=== PATIENT | female | born 1960 | race African-American/Black ===

== ENCOUNTER 2023-09-08 09:25 | Emergency (ER) | payer MEDICAID ==
[~2023-09-08] VITALS: Ht 160 cm; Wt 68.0 kg
[~2023-09-08 09:25] MED LIST: NAPR-681 PO
[2023-09-08 09:45] VITALS: O2SAT 97
[2023-09-08 10:35] LABS: CLARITY URINE CLOUDY (CLEAR); COLOR URINE YELLOW (YELLOW); GLUCOSE URINE NEGATIVE (NEGATIVE); KETONES URINE NEGATIVE (NEGATIVE); LEUKOCYTE ESTERASE URINE 3+ (NEGATIVE); NITRITE URINE NEGATIVE (NEGATIVE); OCCULT BLOOD URINE TRACE (NEGATIVE); PH URINE 5.5 (4.5-8.0); PROTEIN URINE NEGATIVE (NEGATIVE); UROBILINOGEN URINE 0.2 E.U./dL (0.2-1.0)
[2023-09-08 11:05] LABS: BACTERIA URINE 2+; SQUAMOUS EPITHELIAL CELL URINE 2+ /lpf (RARE/1+); WBC URINE 50-100 /hpf (0-2); YEAST URINE NONE SEEN
[2023-09-08] MEDS ORDERED: CEFTRIAXONE 1GM/50ML 50 ML IV NR (12:00)
[2023-09-08] MEDS ORDERED: DOXY100C5 MT (12:02)
[2023-09-08] MEDS: DOXYCYCLINE HYCLATE 100MG CAPSULE PO NR (12:09)
[2023-09-08 12:23] VITALS: BP 164/86; PULSE 76; RESP 18; TEMP 98.3
[2023-09-08] MEDS: LIDOCAINE HCL 1% 20ML VIAL (Pyxis) INJ INFIL NR (12:23)
[2023-09-08] MEDS: CEFTRIAXONE SODIUM 1G VIAL IM ONE (12:23)
== END 2023-09-08 12:25 | disposition home or self-care (01) ==
LOC: ER 09:25
DX: N12 Tubulo-interstitial nephritis, not specified as acute or chronic (principal); J44.1 Chronic obstructive pulmonary disease with (acute) exacerbation; I10 Essential (primary) hypertension
CPT/HCPCS: 81003; 87086; 96372; 99283; J0696; J3490; Z7610 ×2